=== PATIENT | female | born 1985 | race Hispanic/Latino ===

== ENCOUNTER 2019-03-20 19:03 | Emergency (ER) | payer BC ==
[2019-03-20 19:20] LABS: APPEARANCE,URINE Clear (CLEAR); BILIRUBIN,URINE Negative (NEGATIVE); COLOR,URINE Yellow (YELLOW); GLUCOSE, URINE (UA) Negative (NEGATIVE); KETONES,URINE Negative (NEGATIVE); LEUKOCYTE ESTERASE ,URINE Negative (NEGATIVE); NITRATE,URINE Negative (NEGATIVE); OCCULT BLOOD,URINE Trace (NEGATIVE); PH,URINE 5.5 (5.0-8.0); PROTEIN,URINE Negative (NEGATIVE)
[2019-03-20 19:28] LABS: BACTERIA,URINE Few /HPF (None Seen); WBC,URINE 0-1 /HPF (0-1)
[2019-03-20 19:30] LABS: MUCUS,URINE Few LPF (None Seen); SQUAMOUS EPITHELIAL CELL,UR Few /HPF (0-2)
[2019-03-20 19:34] LABS: BASOPHILS % (AUTO) 1.3 % (0.0-5.0); EOSINOPHILS % (AUTO) 0.9 % (0.0-8.0); HEMATOCRIT 42.9 % (36-48); LYMPHOCYTES % (AUTO) 41.1 % (21.0-51.0); MEAN CORPUSCULAR HEMOGLOBIN 30.3 pg (27.0-33.0); MEAN CORPUSCULAR HGB CONC 33.2 g/dL (32.0-36.0); MEAN CORPUSCULAR VOLUME 91.3 fL (79-99); MONOCYTES % (AUTO) 6.9 % (3.0-13.0); NEUTROPHILS % (AUTO) 49.8 % (40.0-77.0); PLATELET COUNT (AUTO) 353 K/uL (130-400); RED BLOOD CELL COUNT(AUTO) 4.69 MIL/uL (4.00-5.50); RED CELL DISTRIBUTION WIDTH 13.1 % (11.0-15.5); WHITE BLOOD COUNT (AUTO) 14.4 K/uL (4.8-10.8)
[2019-03-20 19:43] LABS: CREATININE 0.7 mg/dL (0.5-1.5); POTASSIUM 3.6 mmol/L (3.5-5.1)
[2019-03-20 19:48] LABS: HCG,QUAL RESULT NEGATIVE (NEGATIVE)
[2019-03-20 19:53] LABS: ALBUMIN 3.5 g/dL (3.5-5.0); BILIRUBIN,TOTAL 0.7 mg/dL (0.2-1.0)
[2019-03-20 19:55] LABS: AMYLASE 55 U/L (25-115); CREATINE KINASE, TOTAL 63 U/L (21-232)
[2019-03-20] MEDS ORDERED: HYOSCYAMINE SULFATE 0.125 MG TAB.SUBL SL ONE (20:53)
[2019-03-20] MEDS ORDERED: FAMOTIDINE 20MG TAB 20 MG TAB ONE (20:53)
[2019-03-20 20:57] LABS: AMPHET/METH SCREEN,URINE NEGATIVE (NEGATIVE); BARBITURATE SCREEN, URINE NEGATIVE (NEGATIVE); BENZODIAZEPINES SCREEN,URINE NEGATIVE (NEGATIVE); CANNABINOID SCREEN,URINE NEGATIVE (NEGATIVE); COCAINE SCREEN,URINE NEGATIVE (NEGATIVE); OPIATE SCREEN,URINE NEGATIVE (NEGATIVE); PHENCYCLIDINE SCREEN,URINE NEGATIVE (NEGATIVE)
== END 2019-03-20 21:07 | disposition home or self-care (01) ==
LOC: EDH 19:03
DX: K29.00 Acute gastritis without bleeding (principal); K80.20 Calculus of gallbladder without cholecystitis without obstruction; R03.0 Elevated blood-pressure reading, without diagnosis of hypertension; E78.5 Hyperlipidemia, unspecified; F41.9 Anxiety disorder, unspecified; Z87.442 Personal history of urinary calculi
CPT/HCPCS: 36415; 71045; 76705; 80053; 80305; 81001; 81025; 82150; 82550; 83690; 84484; 85025; 86677; 93005

== ENCOUNTER 2019-07-13 21:48 | Emergency (ER) | payer BC ==
[2019-07-13 22:31] LABS: EOSINOPHILS % (AUTO) 3.1 % (0.0-8.0); HEMATOCRIT 41.7 % (36-48); MEAN CORPUSCULAR HEMOGLOBIN 31.2 pg (27.0-33.0); MEAN CORPUSCULAR HGB CONC 33.9 g/dL (32.0-36.0); MONOCYTES % (AUTO) 6.8 % (3.0-13.0); NEUTROPHILS % (AUTO) 50.1 % (40.0-77.0); PLATELET COUNT (AUTO) 324 K/uL (130-400); RED BLOOD CELL COUNT(AUTO) 4.53 MIL/uL (4.00-5.50); RED CELL DISTRIBUTION WIDTH 13.2 % (11.0-15.5); WHITE BLOOD COUNT (AUTO) 13.1 K/uL (4.8-10.8)
[2019-07-13 22:37] LABS: CREATININE 0.7 mg/dL (0.5-1.5); POTASSIUM 3.9 mmol/L (3.5-5.1)
[2019-07-13] MEDS ORDERED: ONDANSETRON HCL 4 MG/2 ML VIAL ONE (22:41)
[2019-07-13] MEDS ORDERED: KETOROLAC TROMETHAMINE 30MG/ML ONE (22:41)
[2019-07-13 22:42] LABS: ALBUMIN 3.6 g/dL (3.5-5.0); BILIRUBIN,TOTAL 0.8 mg/dL (0.2-1.0); INR 0.95 (0.85-1.15); PARTIAL THROMBOPLASTIN TIME 26.1 SEC (26.3-35.5); TOTAL PROTEIN, SERUM 7.3 g/dL (6.0-8.3)
== END 2019-07-13 23:52 | disposition home or self-care (01) ==
LOC: EDH 21:48
DX: R07.89 Other chest pain (principal); R51 Headache; E78.5 Hyperlipidemia, unspecified; F41.9 Anxiety disorder, unspecified; Z98.890 Other specified postprocedural states
CPT/HCPCS: 36415; 70450; 71045; 80053; 81025; 82550; 84484; 85025; 85610; 85730; 93005; 96374; 96375; 99285; J1885; J2405

== ENCOUNTER 2020-11-15 11:52 | Inpatient (IN) | payer OTHER, MEDICAID ==
[~2020-11-15] VITALS: Ht 162.6 cm; Wt 90.0 kg
[2020-11-15 12:12] LABS: APPEARANCE,URINE Cloudy (CLEAR); BILIRUBIN,URINE Negative (NEGATIVE); COLOR,URINE Yellow (YELLOW); GLUCOSE, URINE (UA) Negative (NEGATIVE); KETONES,URINE Trace mg/dL (NEGATIVE); LEUKOCYTE ESTERASE ,URINE Large (NEGATIVE); NITRATE,URINE Negative (NEGATIVE); OCCULT BLOOD,URINE Small (NEGATIVE); PROTEIN,URINE Trace mg/dL (NEGATIVE)
[2020-11-15 12:18] LABS: HCG,QUAL RESULT NEGATIVE (NEGATIVE)
[2020-11-15] MEDS ORDERED: KETOROLAC 30MG VIAL (30MG/ML) ONE (12:25)
[2020-11-15] MEDS ORDERED: 0.9%NACL 1000ML 1,000 ML IV ONE (12:25)
[2020-11-15] MEDS ORDERED: ONDANSETRON 4MG INJ ONE (12:30)
[2020-11-15 12:31] LABS: BASOPHILS % (AUTO) 0.3 % (0.0-5.0); EOSINOPHILS % (AUTO) 0.1 % (0.0-8.0); HEMATOCRIT 37.6 % (36-48); MEAN CORPUSCULAR HEMOGLOBIN 31.4 pg (27.0-33.0); MEAN CORPUSCULAR HGB CONC 33.8 g/dL (32.0-36.0); MEAN CORPUSCULAR VOLUME 92.8 fL (79-99); MONOCYTES % (AUTO) 6.2 % (3.0-13.0); NEUTROPHILS % (AUTO) 86.8 % (40.0-77.0); PLATELET COUNT (AUTO) 235 K/uL (130-400); RED BLOOD CELL COUNT(AUTO) 4.05 MIL/uL (4.00-5.50); RED CELL DISTRIBUTION WIDTH 12.6 % (11.0-15.5); WHITE BLOOD COUNT (AUTO) 18.8 K/uL (4.8-10.8)
[2020-11-15 12:42] LABS: CREATININE 1.3 mg/dL (0.5-1.5); POTASSIUM 3.3 mmol/L (3.5-5.1)
[2020-11-15 12:47] LABS: ALBUMIN 3.3 g/dL (3.5-5.0); BILIRUBIN,TOTAL 1.6 mg/dL (0.2-1.0); TOTAL PROTEIN, SERUM 7.4 g/dL (6.0-8.3)
[2020-11-15 12:51] LABS: BACTERIA,URINE Few /HPF (None Seen); SQUAMOUS EPITHELIAL CELL,UR 0-2 /HPF (0-2)
[2020-11-15 12:52] LABS: MUCUS,URINE Few LPF (None Seen)
[2020-11-15] MEDS ORDERED: CEFTRIAXONE 2GM VIAL ONE (13:06)
[2020-11-15] MEDS ORDERED: MORPHINE 4 MG SYG ONE ×2 (13:06→18:24)
[2020-11-15] MEDS ORDERED: IBUPROFEN 400 MG TABLET ONE (14:20)
[2020-11-15] MEDS ORDERED: 0.9%NACL 1000ML 2,000 ML IV ONE (14:49)
[2020-11-15] MEDS ORDERED: ZOLPIDEM TARTRATE 5 MG TAB PO PRN (16:45)
[2020-11-15] MEDS ORDERED: ACETAMINOPHEN 325 MG TAB PO PRN ×2 (16:45)
[2020-11-15] MEDS ORDERED: GUAIFENESIN-DM 200/20 MG 10 ML PO PRN (16:45)
[2020-11-15] MEDS ORDERED: DIPHENHYDRAMINE HCL 25 MG CAPSULE PO PRN (16:45)
[2020-11-15] MEDS ORDERED: DiphenhydrAMINE HCL 50 MG/ML VIAL IV PRN (16:45)
[2020-11-15] MEDS ORDERED: LIDOCAINE HCL-MPF 1% 2ML VIAL IV PRN (16:45)
[2020-11-15] MEDS ORDERED: NITROGLYCERIN 0.4 MG SL TAB SL PRN (16:45)
[2020-11-15] MEDS ORDERED: LACTULOSE 20 GM/30 ML UDCUP PO PRN (16:45)
[2020-11-15] MEDS ORDERED: HYDRALAZINE 20MG/ML VIAL IV PRN (16:45)
[2020-11-15] MEDS ORDERED: MAGNESIUM 2GM PREMIX 50ML 50 ML IV PRN (16:45)
[2020-11-15] MEDS ORDERED: MAG/ALUM/SIMETH 30 ML UDCUP PO PRN (16:45)
[2020-11-15] MEDS ORDERED: POTASSIUM CHLORIDE 20MEQ/100ML 100 ML IV PRN (16:45)
[2020-11-15] MEDS ORDERED: IODIXANOL 320 MG/ML 100 ML VIAL ONE (16:52)
[2020-11-15] MEDS ORDERED: FENTANYL CITRATE PF 50 MCG/1 ML 2ML VIAL ONE (16:53)
[2020-11-15] MEDS ORDERED: MIDAZOLAM HCL 1 MG/ML 2ML VIAL ONE (16:53)
[2020-11-15] MEDS ORDERED: LIDOCAINE HCL 1% MDV 50ML VIAL ONE (16:53)
[2020-11-15 19:50] VITALS: BP 92/54
[2020-11-15] MEDS: INSULIN HUMULIN R 100 UNIT/ML 3ML SQ SCH (21:00)
[2020-11-15] MEDS: ZOSYN 3.375GM+NS 50ML 50 ML IV SCH (21:20)
[2020-11-15] MEDS: FAMOTIDINE 20MG TAB PO SCH (21:21)
[2020-11-15] MEDS: ONDANSETRON 4MG INJ IV PRN (21:32)
[2020-11-15] MEDS: MORPHINE 2 MG SYG IV PRN (22:44)
[2020-11-15 23:00] VITALS: BP 95/52
[2020-11-16 03:24] VITALS: BP 95/52
[2020-11-16] MEDS: ZOSYN 3.375GM+NS 50ML 50 ML IV SCH ×3 (04:49→21:28)
[2020-11-16] MEDS: HYDROMORPHONE 0.5 MG SYG (0.5MG/0.5ML) IV PRN ×4 (05:02→21:28)
[2020-11-16] MEDS: INSULIN HUMULIN R 100 UNIT/ML 3ML SQ SCH ×4 (05:47→20:12)
[2020-11-16 07:45] VITALS: BP 93/56
[2020-11-16] MEDS ORDERED: ACETAMINOPHEN 325 MG TAB ONE (08:06)
[2020-11-16 08:12] LABS: HEMATOCRIT 37.4 % (36-48); MEAN CORPUSCULAR HEMOGLOBIN 30.7 pg (27.0-33.0); MEAN CORPUSCULAR HGB CONC 32.6 g/dL (32.0-36.0); RED BLOOD CELL COUNT(AUTO) 3.98 MIL/uL (4.00-5.50); RED CELL DISTRIBUTION WIDTH 13.2 % (11.0-15.5); WHITE BLOOD COUNT (AUTO) 16.5 K/uL (4.8-10.8)
[2020-11-16] MEDS: FAMOTIDINE 20MG TAB PO SCH ×2 (08:12→21:28)
[2020-11-16 08:24] LABS: CREATININE 1.4 mg/dL (0.5-1.5); POTASSIUM 3.3 mmol/L (3.5-5.1)
[2020-11-16] MEDS: PHARMACY COMMUNICATION MISC SCH ×2 (09:30→12:14)
[2020-11-16] MEDS ORDERED: PHARMACY COMMUNICATION MISC SCH (10:15)
[2020-11-16] MEDS: 0.9%NACL 1000ML 1,000 ML IV SCH ×3 (10:21→21:29)
[2020-11-16 11:44] VITALS: BP 98/55
[2020-11-16] MEDS: ONDANSETRON 4MG INJ IV PRN (12:06)
[2020-11-16] MEDS ORDERED: DOCUSATE SODIUM 100 MG CAP PO SCH (14:30)
[2020-11-16 15:58] VITALS: BP 101/59
[2020-11-16] MEDS ORDERED: ACETAMINOPHEN 325 MG TAB PO PRN (16:15)
[2020-11-16] MEDS ORDERED: KCL 20 MEQ ERTAB PO PRN (17:15)
[2020-11-16] MEDS: POTASSIUM CHLORIDE 10% ELIXIR 20 MEQ/15 ML UDCUP PO PRN (18:31)
[2020-11-16 20:20] VITALS: BP 104/60
[2020-11-17] VITALS: BP 103/56
[2020-11-17] MEDS: ZOSYN 3.375GM+NS 50ML 50 ML IV SCH ×2 (05:30→13:49)
[2020-11-17] MEDS: HYDROMORPHONE 0.5 MG SYG (0.5MG/0.5ML) IV PRN ×4 (05:30→21:16)
[2020-11-17 05:45] VITALS: BP 92/53
[2020-11-17] MEDS: INSULIN HUMULIN R 100 UNIT/ML 3ML SQ SCH ×3 (06:19→21:00)
[2020-11-17 08:00] VITALS: BP 97/54
[2020-11-17] MEDS: 0.9%NACL 1000ML 1,000 ML IV SCH ×2 (08:28→13:50)
[2020-11-17] MEDS: FAMOTIDINE 20MG TAB PO SCH ×2 (09:05→20:07)
[2020-11-17] MEDS: POTASSIUM CHLORIDE 10% ELIXIR 20 MEQ/15 ML UDCUP PO PRN ×2 (11:01→13:51)
[2020-11-17] MEDS: ONDANSETRON 4MG INJ IV PRN (11:03)
[2020-11-17 13:59] VITALS: BP 112/62
[2020-11-17] MEDS ORDERED: LEVOFLOXACIN 750 MG/D5W 150 ML 150 ML IV SCH (14:30)
[2020-11-17 18:25] VITALS: BP 106/56
[2020-11-17] MEDS ORDERED: LEVOFLOXACIN 750 MG/D5W 150 ML 150 ML ONE (19:17)
[2020-11-17 20:12] VITALS: BP 121/60
[2020-11-18 00:10] VITALS: BP 116/70
[2020-11-18] MEDS: HYDROMORPHONE 0.5 MG SYG (0.5MG/0.5ML) IV PRN ×4 (02:45→19:46)
[2020-11-18] MEDS ORDERED: ALPR0.5T8 PO (02:49)
[2020-11-18] MEDS ORDERED: TAMS-1 PO (02:49)
[2020-11-18 04:15] VITALS: BP 106/59
[2020-11-18] MEDS: 0.9%NACL 1000ML 1,000 ML IV SCH ×2 (05:08→14:45)
[2020-11-18] MEDS: INSULIN HUMULIN R 100 UNIT/ML 3ML SQ SCH ×4 (05:53→19:47)
[2020-11-18 06:06] LABS: MEAN CORPUSCULAR HEMOGLOBIN 30.7 pg (27.0-33.0); MEAN CORPUSCULAR HGB CONC 32.9 g/dL (32.0-36.0); MEAN CORPUSCULAR VOLUME 93.2 fL (79-99); RED BLOOD CELL COUNT(AUTO) 3.65 MIL/uL (4.00-5.50); RED CELL DISTRIBUTION WIDTH 12.9 % (11.0-15.5); WHITE BLOOD COUNT (AUTO) 9.9 K/uL (4.8-10.8)
[2020-11-18 06:19] LABS: CREATININE 0.8 mg/dL (0.5-1.5); POTASSIUM 3.7 mmol/L (3.5-5.1)
[2020-11-18 08:00] VITALS: BP 116/70
[2020-11-18] MEDS ORDERED: LEVOFLOXACIN 750 MG/D5W 150 ML 150 ML IV SCH (09:00)
[2020-11-18] MEDS: LEVOFLOXACIN 500 MG/D5W 100 ML 100 ML IV SCH (09:29)
[2020-11-18] MEDS: FAMOTIDINE 20MG TAB PO SCH ×2 (09:39→19:46)
[2020-11-18 12:00] VITALS: BP 113/63
[2020-11-18 16:00] VITALS: BP 121/73
[2020-11-18] MEDS: POTASSIUM CHLORIDE 10% ELIXIR 20 MEQ/15 ML UDCUP PO PRN (19:46)
[2020-11-18 20:51] VITALS: BP 114/68
[2020-11-18] MEDS: MORPHINE 2 MG SYG IV PRN (23:27)
[2020-11-19 00:16] VITALS: BP 105/62
[2020-11-19] MEDS: 0.9%NACL 1000ML 1,000 ML IV SCH ×2 (00:45→10:45)
[2020-11-19 04:07] VITALS: BP 116/68
[2020-11-19] MEDS: HYDROMORPHONE 0.5 MG SYG (0.5MG/0.5ML) IV PRN (04:54)
[2020-11-19 04:55] LABS: HEMATOCRIT 33.4 % (36-48); MEAN CORPUSCULAR HEMOGLOBIN 30.5 pg (27.0-33.0); MEAN CORPUSCULAR HGB CONC 32.6 g/dL (32.0-36.0); MEAN CORPUSCULAR VOLUME 93.6 fL (79-99); RED BLOOD CELL COUNT(AUTO) 3.57 MIL/uL (4.00-5.50); RED CELL DISTRIBUTION WIDTH 12.7 % (11.0-15.5)
[2020-11-19] MEDS: INSULIN HUMULIN R 100 UNIT/ML 3ML SQ SCH ×2 (05:05→11:30)
[2020-11-19 05:06] LABS: CREATININE 0.8 mg/dL (0.5-1.5); POTASSIUM 3.6 mmol/L (3.5-5.1)
[2020-11-19] MEDS: POTASSIUM CHLORIDE 10% ELIXIR 20 MEQ/15 ML UDCUP PO PRN (05:22)
[2020-11-19 07:59] VITALS: BP 115/66
[2020-11-19] MEDS: ACETAMINOPHEN WITH CODEINE 1 TAB TAB PO PRN ×2 (09:12→15:33)
[2020-11-19] MEDS: FAMOTIDINE 20MG TAB PO SCH (09:12)
[2020-11-19] MEDS: LEVOFLOXACIN 500 MG/D5W 100 ML 100 ML IV SCH (09:12)
[2020-11-19] MEDS: ONDANSETRON 4MG INJ IV PRN (11:23)
[2020-11-19 11:38] VITALS: BP 111/65
[2020-11-19] MEDS ORDERED: ONDA4TAB4 PO (13:41)
[2020-11-19] MEDS ORDERED: LEVO750T46 PO (13:41)
[2020-11-19 16:21] VITALS: BP 106/76
== END 2020-11-19 13:35 | disposition home or self-care (01) | DRG 872 ==
LOC: EDH 11:52 → OBSVTOIN 11:53 → EDHIP 11:53 → 4CH 19:25 → 3DH 11-18 03:03
PROVIDERS: ADMIT Internal Medicine Critical Care Medicine; ATTEND Internal Medicine Critical Care Medicine
PROC: 0T9330Z Drainage of Right Kidney Pelvis with Drainage Device, Percutaneous Approach (ICD-10-PCS; principal; 2020-11-15)
PROC: BT41ZZZ Ultrasonography of Right Kidney (ICD-10-PCS; 2020-11-15)
PROC: BT111ZZ Fluoroscopy of Right Kidney using Low Osmolar Contrast (ICD-10-PCS; 2020-11-15)
DX: A41.50 Gram-negative sepsis, unspecified (principal); N17.9 Acute kidney failure, unspecified; N13.6 Pyonephrosis; R31.9 Hematuria, unspecified; E66.9 Obesity, unspecified; E87.6 Hypokalemia; F41.9 Anxiety disorder, unspecified; K59.00 Constipation, unspecified; R53.81 Other malaise; Z68.34 Body mass index [BMI] 34.0-34.9, adult; Z87.442 Personal history of urinary calculi; Z90.49 Acquired absence of other specified parts of digestive tract; Z20.822 Contact with and (suspected) exposure to COVID-19
CPT/HCPCS: 10030; 36415; 50432; 74176; 80048; 80053; 81001; 81025; 82150; 82948; 83605; 83690; 84132; 85025; 85027; 87040; 87077; 87088; 87186; 87426; 93306; 93356; 99156; 99157; C1729; C1769; C1894; G0378; J0696; J1170; J1644; J1885; J1956; J2250; J2270; J2405; J2543; J3010; J3490; J7030; Q9967; U0003

== ENCOUNTER 2023-04-20 19:38 | Emergency (ER) | payer OTHER, MEDICAID ==
[~2023-04-20] VITALS: Ht 162.6 cm; Wt 106.6 kg
[~2023-04-20 19:38] MED LIST: ALPR0.5T8 PO; LEVO750T68 PO; ONDA4TAB4 PO; TAMS-1 PO
[2023-04-20 19:40] VITALS: BP 174/85
[2023-04-20 20:03] LABS: BASOPHILS % (AUTO) 0.2 % (0.0-5.0); HEMATOCRIT 46.8 % (36-48); LYMPHOCYTES % (AUTO) 12.4 % (21.0-51.0); MEAN CORPUSCULAR HEMOGLOBIN 29.9 pg (27.0-33.0); MEAN CORPUSCULAR HGB CONC 32.9 g/dL (32.0-36.0); MEAN CORPUSCULAR VOLUME 90.9 fL (79-99); MONOCYTES % (AUTO) 1.6 % (3.0-13.0); NEUTROPHILS % (AUTO) 84.9 % (40.0-77.0); PLATELET COUNT (AUTO) 353 K/uL (130-400); RED BLOOD CELL COUNT(AUTO) 5.15 MIL/uL (4.00-5.50); RED CELL DISTRIBUTION WIDTH 12.9 % (11.0-15.5); WHITE BLOOD COUNT (AUTO) 13.7 K/uL (4.8-10.8)
[2023-04-20 20:10] LABS: APPEARANCE,URINE CLEAR (CLEAR); BILIRUBIN,URINE NEGATIVE (NEGATIVE); COLOR,URINE LIGHT-YELLOW (YELLOW); GLUCOSE, URINE (UA) NEGATIVE (NEGATIVE); KETONES,URINE NEGATIVE (NEGATIVE); LEUKOCYTE ESTERASE ,URINE NEGATIVE Leu/uL (NEGATIVE); NITRATE,URINE NEGATIVE (NEGATIVE); OCCULT BLOOD,URINE LARGE (NEGATIVE); PH,URINE 6.5 (5.0-8.0); PROTEIN,URINE 10 mg/dL (NEGATIVE); UROBILINOGEN,URINE 0.2 mg/dL (0.2-1.0)
[2023-04-20 20:19] LABS: BACTERIA,URINE RARE /HPF (None Seen); MUCUS,URINE RARE LPF (None Seen); RBC,URINE 51-100 /HPF (0-1); SQUAMOUS EPITHELIAL CELL,UR MOD /HPF (0-2)
[2023-04-20 20:19] LABS: ALBUMIN 3.5 g/dL (3.5-5.0); CREATININE 0.9 mg/dL (0.5-1.5); MAGNESIUM 1.6 mg/dL (1.80-2.40); POTASSIUM 3.9 mmol/L (3.5-5.1); TOTAL PROTEIN, SERUM 8.4 g/dL (6.0-8.3)
[2023-04-20] MEDS ORDERED: HYDROXYZINE 25 MG TABLET PO ONE ×2 (20:30→22:00)
[2023-04-20] MEDS ORDERED: 0.9%NACL 1000ML 1,000 ML IV ONE (20:30)
[2023-04-20] MEDS ORDERED: MAGNESIUM 2GM PREMIX 50ML 50 ML IV SCH (20:30)
[2023-04-20] MEDS ORDERED: HYDR50CA50 PO (21:53)
== END 2023-04-20 22:08 | disposition home or self-care (01) ==
LOC: EDH 19:38
DX: J98.01 Acute bronchospasm (principal); F41.9 Anxiety disorder, unspecified; E78.00 Pure hypercholesterolemia, unspecified; Z87.442 Personal history of urinary calculi; Z90.49 Acquired absence of other specified parts of digestive tract
CPT/HCPCS: 99285; 96374; 71046; 96361; 83735; 84484; 80053; 85025; 81001; 36415; 93005; J3475; J7030